=== PATIENT | male | born 1965 | race Two or more races ===

== ENCOUNTER 2025-04-09 11:00 | Outpatient (CLI) | payer OTHER | END 2025-04-09 11:01 | disposition home or self-care (01) | LOC: NUCLEAR 11:00 | PROVIDERS: ATTEND Specialist | DX: I87.2 Venous insufficiency (chronic) (peripheral) (principal) ==

== ENCOUNTER 2025-04-10 11:06 | Outpatient (CLI) | payer OTHER | END 2025-04-10 11:07 | disposition home or self-care (01) | LOC: NUCLEAR 11:06 | PROVIDERS: ATTEND Specialist | DX: I73.9 Peripheral vascular disease, unspecified (principal) ==